=== PATIENT | female | born 1985 | race Two or more races ===

== ENCOUNTER 2020-04-07 03:02 | Emergency (ER) | payer SELFPAY ==
[~2020-04-07] VITALS: Ht 165.1 cm; Wt 67.3 kg
[2020-04-07 03:36] LABS: BASOPHILS % (AUTO) 0.9 % (0.0-2.0); EOSINOPHILS % (AUTO) 1.4 % (1.0-6.0); HEMATOCRIT 44.7 % (36-46); HEMOGLOBIN 15.8 g/dL (12.0-16.0); LYMPHOCYTES # (AUTO) 2.2 K/uL (1.0-4.8); MEAN CORPUSCULAR HEMOGLOBIN 32.4 pg (26.0-34.0); MEAN CORPUSCULAR HGB CONC 35.4 G/dL (31.0-37.0); MEAN CORPUSCULAR VOLUME 91 fL (80-100); MONOCYTES % (AUTO) 12.7 % (2.0-9.0); NEUTROPHILS # (AUTO) 4.5 K/uL (1.8-7.7); PLATELET COUNT (AUTO) 203 K/uL (150-450); RED BLOOD CELL COUNT(AUTO) 4.89 MIL/uL (4.00-5.20); RED CELL DISTRIBUTION WIDTH 12.5 % (11.5-14.5)
[2020-04-07 03:50] LABS: ANION GAP 12 mmol/L (8-16); CALCIUM, TOTAL 8.3 mg/dL (8.8-10.5); CARBON DIOXIDE 23 mmol/L (22-29); CHLORIDE 106 mmol/L (98-107); CREATININE 0.71 mg/dL (0.60-1.30); GLOMERULAR FILTR. RATE CALC > 60 mL/min (>60); GLUCOSE,RANDOM 105 mg/dL (70-110); POTASSIUM 3.9 mmol/L (3.5-5.1); SODIUM SERUM 141 mmol/L (136-145); UREA NITROGEN, BLOOD 12 mg/dL (7-18)
[2020-04-07 03:55] LABS: ALANINE AMINOTRANSFERASE 128 U/L (12-78); ALBUMIN 4.2 g/dL (3.4-5.0); ALKALINE PHOSPHATASE 74 U/L (46-116); ASPARTATE AMINOTRANSFERASE 73 U/L (15-37); BILIRUBIN,TOTAL 0.2 mg/dL (0.1-1.0); HCG,QUANTITATIVE 201 mIU/mL (0-6); TOTAL PROTEIN, SERUM 8.6 g/dL (6.4-8.2)
[2020-04-07 05:40] VITALS: BP 129/78
== END 2020-04-07 05:44 | disposition home or self-care (01) ==
LOC: EMS 03:02
DX: O99.341 Other mental disorders complicating pregnancy, first trimester (principal); O16.1 Unspecified maternal hypertension, first trimester; O26.891 Other specified pregnancy related conditions, first trimester; F41.9 Anxiety disorder, unspecified; R00.2 Palpitations; F10.129 Alcohol abuse with intoxication, unspecified; Z3A.01 Less than 8 weeks gestation of pregnancy; Y90.8 Blood alcohol level of 240 mg/100 ml or more
CPT/HCPCS: 36415; 80053; 84702; 85025; 93005; 99284; G0480